=== PATIENT | female | born 1965 | race Caucasian/White ===

== ENCOUNTER 2016-08-17 13:02 | Emergency (ER) | payer MEDICARE, OTHER | END 2016-08-17 14:14 | disposition home or self-care (01) | LOC: ER 13:02 | DX: B35.6 Tinea cruris (principal); B37.3 Candidiasis of vulva and vagina; A59.01 Trichomonal vulvovaginitis; K21.9 Gastro-esophageal reflux disease without esophagitis; I10 Essential (primary) hypertension; E11.9 Type 2 diabetes mellitus without complications; F17.210 Nicotine dependence, cigarettes, uncomplicated; Z95.1 Presence of aortocoronary bypass graft; Z79.82 Long term (current) use of aspirin; Z79.4 Long term (current) use of insulin; Z79.899 Other long term (current) drug therapy; Z88.5 Allergy status to narcotic agent ==